=== PATIENT | female | born 1980 ===

== ENCOUNTER 2020-11-20 15:07 | Emergency (ER) | payer SELFPAY ==
--- NOTE | 2020-11-20 15:25 | NUR ---
PT WAS WAITING IN THE AMBULANCE BAY DUE TO HER BEING COVID POSITIVE, PT AND WERE VERY RUDE AND YELLING AT STAFF, WHEN I WENT OUT TO ASSESS PT YELLED AT ME BEFORE I EVEN SAW PT. THEN PT GOT UP OUT OF CHAIR AND SAID "WE ARE GOING [facility]". MD KOVACS
== END 2020-11-20 15:25 | disposition left against medical advice (07) ==
LOC: ER 15:07
DX: U07.1 COVID-19 (principal); Z53.21 Procedure and treatment not carried out due to patient leaving prior to being seen by health care provider